=== PATIENT | male | born 2000 | race African-American/Black ===

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

== ENCOUNTER 2018-02-19 21:50 | Emergency (ER) | payer SELFPAY ==
[2018-02-19] MEDS ORDERED: Acetaminophen 500 MG TAB ONE (22:24)
== END 2018-02-19 22:28 | disposition home or self-care (01) ==
LOC: BURERS 21:50
DX: S13.4XXA Sprain of ligaments of cervical spine, initial encounter (principal); V43.53XA Car driver injured in collision with pick-up truck in traffic accident, initial encounter
CPT/HCPCS: 99283

== ENCOUNTER 2018-03-06 14:31 | Emergency (ER) | payer OTHER, SELFPAY ==
[2018-03-06] MEDS ORDERED: Bacitracin Zinc 1 Packet ONE (15:16)
--- NOTE | 2018-03-06 19:41 | RAD ---
LEFT KNEE FOUR VIEWS: 03/06/18 No fracture or joint effusion was seen. All bones appeared intact. The joint space appears normal. IMPRESSION: No acute finding. POS: HOME
== END 2018-03-06 15:29 | disposition home or self-care (01) ==
LOC: BURERS 14:31
DX: S80.02XA Contusion of left knee, initial encounter (principal); S20.412A Abrasion of left back wall of thorax, initial encounter; S20.411A Abrasion of right back wall of thorax, initial encounter; S40.212A Abrasion of left shoulder, initial encounter; S40.211A Abrasion of right shoulder, initial encounter; S40.812A Abrasion of left upper arm, initial encounter; S40.811A Abrasion of right upper arm, initial encounter; S80.811A Abrasion, right lower leg, initial encounter; V19.9XXA Pedal cyclist (driver) (passenger) injured in unspecified traffic accident, initial encounter

== ENCOUNTER 2024-01-25 16:01 | Emergency (ER) | payer SELFPAY | END 2024-01-25 17:26 | disposition home or self-care (01) | LOC: BURERS 16:01 | DX: S62.211A Bennett's fracture, right hand, initial encounter for closed fracture (principal); F17.290 Nicotine dependence, other tobacco product, uncomplicated; W21.01XA Struck by football, initial encounter; Y93.61 Activity, american tackle football | CPT/HCPCS: 26700 ==

== ENCOUNTER 2025-02-22 14:26 | Emergency (ER) | payer SELFPAY ==
[2025-02-23 15:23] LABS: Chlam.trachomatis by PCR,Urine Not Detected (NotDetected); GC N.gonorrhoeae PCR,UrineVOID Not Detected (NotDetected)
== END 2025-02-22 15:08 | disposition home or self-care (01) ==
LOC: BURERS 14:26
DX: A64 Unspecified sexually transmitted disease (principal); F17.290 Nicotine dependence, other tobacco product, uncomplicated
CPT/HCPCS: 87491; 87591; 99283